=== PATIENT | female | born 1940 | race Caucasian/White ===

== ENCOUNTER → 2017-05-24 | Outpatient (CLI) | payer MEDICARE, OTHER ==
[~2017-05-24] MED LIST: ADVAIR 500/501 EA INH; ASPIR 8181 MG PO; BYDUREON2 MG SC; CINNAMON500 MG PO; DILTIAZEM 24HR180 M1 PO; GABAPENTIN400 MG PO; HYDROCHLOROTHIA25 MG PO; IPRATROPIU0.2 MG/1 M NEB; LANTUS 3ML100 UNITS/ SC; LEVOTHYROXINE50 MCG PO; LORATADINE10 MG PO; LOSARTAN POTAS100 MG PO; MAGNESIUM OXID400 MG PO; METFORMIN HCL500 MG PO; OMEGA 3 1,0001 EACH PO; PANTOPRAZOLE SO40 MG PO; PRAMIPEXOLE D0.25 MG PO; PROAIR HFA INH8.5 GM INH; SPIRIVA18 MCG INH
--- NOTE | 2017-05-25 08:07 | Diagnostic Imaging Report ---
TECHNIQUE: Magnetic resonance imaging of the RIGHT foot was performed WITHOUT injected contrast. HISTORY: Right foot pain, evaluate for osteomyelitis. COMPARISON: None available. DISCUSSION: Soft tissue ulceration with sinus tract plantar to the first MTP joint extending to the bone. Dorsal subluxation of the proximal phalanx from the first metatarsal. Septic arthritis of the first metatarsophalangeal joint with osteomyelitis involving the first metatarsal and proximal phalanx. Surrounding soft tissue phlegmon/abscess. Diffuse soft tissue edema predominantly involving the dorsal soft tissues. Remote posttraumatic/infectious change of the fifth metatarsal head. IMPRESSION: Septic arthritis of the first metatarsophalangeal joint with adjacent osteomyelitis and surrounding phlegmon/abscess. Signed by: Dr. Austin Nicholas M.D. on 05/25/2017 8:04 AM
== END ==
LOC: MRI 14:07
PROVIDERS: ATTEND Family Medicine
DX: M79.671 Pain in right foot (principal); M86.171 Other acute osteomyelitis, right ankle and foot

== ENCOUNTER → 2017-06-04 | Day surgery (SDC) | payer MEDICARE, OTHER ==
[2017-06-02 15:00] LABS: BASOPHILS # (AUTO) 0.1 (0.0-0.1); BASOPHILS % 0.6 % (0.0-1.0); EOSINOPHILS # (AUTO) 0.1 (0.0-0.4); EOSINOPHILS % 0.5 % (0.0-6.0); HEMATOCRIT 42.4 % (34.2-44.1); LYMPHOCYTES # (AUTO) 3.5 (1.0-3.2); LYMPHOCYTES % 27.3 % (18.0-39.1); MEAN CORPUSCULAR HEMOGLOBIN 28.3 pg (28-32); MEAN CORPUSCULAR VOLUME 85.7 fL (81-99); MONOCYTES # (AUTO) 1.1 (0.2-0.8); MONOCYTES % 8.2 % (4.4-11.3); NEUTROPHILS # (AUTO) 8.1 (2.1-6.9); NEUTROPHILS % 62.7 % (38.7-80.0); PLATELET COUNT 378 x10e3/uL (140-360); RED BLOOD COUNT 4.95 x10e6/uL (3.6-5.1); RED CELL DISTRIBUTION WIDTH 14.5 % (11.7-14.4)
[2017-06-02 15:16] LABS: ANION GAP 18.5 mmol/L (8-16); CALCIUM 10.3 mg/dL (8.4-10.2); CREATININE, SERUM 0.99 mg/dL (0.57-1.11); POTASSIUM 4.5 mmol/L (3.5-5.1)
--- NOTE | 2017-06-02 16:01 | Diagnostic Imaging Report ---
PROCEDURE: X-RAY CHEST, TWO VIEWS COMPARISON: Chest x-ray 12/04/16. INDICATIONS: PREOP SURGERY RIGHT FOOT WEDNESDAY FINDINGS: LUNGS: Well-inflated. No mass or infiltrate. Vascular markings are normal. PLEURA: No effusions or pneumothorax. HEART \T\ MEDIASTINUM: The heart is within normal size-limits. Calcifications of the aortic arch are stable. BONES \T\ SOFT TISSUES: No focal osseous lesions. Soft tissues are unremarkable. CONCLUSION: No acute cardiopulmonary process. Dictated by: Aidan River M.D. on 06/02/2017 at 16:01 Electronically approved by: Aidan River M.D. on 06/02/2017 at 16:01
[~2017-06-04] MED LIST changes: +BACITRACIN 50,000 UNIT VIAL ONE; +BUPIVACAINE HCL 0.5% 10ML MPF VIAL INJ ONE; +DEXAMETHASONE SOD PHOS INJ 4 MG/ML VIAL ONE; +FENTANYL CITRATE/PF 100MCG/2 ML INJ ONE; +LIDOCAINE HCL 2% LOCAL INJ 5 ML SDV VIAL INJ ONE; +NEOSTIGMINE 1 MG/ML 10ML VIAL ONE; +PROPOFOL IV EMULSION 10 MG/ML 20 ML VIAL ONE; +SEVOFLURANE INHAL SOLN 250 ML PEN BTL ONE; +VANCOMYCIN 1GM/NS 250 ML 250 ML ONE
--- OUTSIDE RECORDS SUMMARY | 2017-06-04 05:27 | XMS REPORT ---
[facility] Address Unknown Phone Unavailable Care Team Providers Care Leather Seasoner Name Role Phone Effie LEO Unavailable Unavailable CODY LAWSON Unavailable Unavailable Problems This patient has no known problems. Allergies, Adverse Reactions, Alerts This patient has no known allergies or adverse reactions. Medications This patient has no known medications. Results Test Description Test Time Test Comments Text Results Atomic Results Result Comments CHEST 2 VIEWS [place] [address] Patient Name: ASCENCION RUIZ MR #: [id number] : 1940 Age/Sex: 77/F Req #: [id number] [facility] Physician: Ordered by: Effie LEO DPM Report #: [id number] Location: OR Room/Bed: Procedure: [id number] DX/CHEST 2 VIEWS Exam Date: 06/02/17 Exam Time : 1530 REPORT STATUS: Signed PROCEDURE: X-RAY CHEST, TWO VIEWS COMPARISON: Chest x-ray 12/04/16. INDICATIONS: PREOP SURGERY RIGHT FOOT WEDNESDAY FINDINGS: LUNGS: Well-inflated. No mass or infiltrate. Vascular markings are normal. PLEURA: No effusions or pneumothorax. HEART T MEDIASTINUM: The heart is within normal size-limits. Calcifications of the aortic arch are stable. BONES T SOFT TISSUES : No focal osseous lesions. Soft tissues are unremarkable. CONCLUSION : No acute cardiopulmonary process. Dictated by: Radha River M.D. on 06/02/2017 at 16:01 Electronically approved by: Rahda River M.D. on 06/02/2017 at 16:01 Dictated By: RADHA RIVER MD 160 Transcribed By: NITHYA on 06/02/17 1601 COPY TO: Effie LEO DPM MRI FOOT RIGHT WO [place] [address] Patient Name: ASCENCION RUIZ MR #: [id number] : 1940 Age/Sex: 77/F Req # : [id number] Adm Physician: Ordered by: CODY LAWSON MD Report #: [id number] Location: MRI Room/Bed: Procedure: [id number] MRI/MRI FOOT RIGHT WO Exam Date: Exam Time: REPORT STATUS: Signed TECHNIQUE: Magnetic resonance imaging of the RIGHT foot was performed WITHOUT injected contrast. HISTORY: Right foot pain, evaluate for osteomyelitis. COMPARISON: None available. DISCUSSION : Soft tissue ulceration with sinus tract plantar to the first MTP joint extending to the bone. Dorsal subluxation of the proximal phalanx from the first metatarsal. Septic arthritis of the first metatarsophalangeal joint with osteomyelitis involving the first metatarsal and proximal phalanx. Surrounding soft tissue phlegmon/abscess. Diffuse soft tissue edema predominantly involving the dorsal soft tissues. Remote posttraumatic/ infectious change of the fifth metatarsal head. IMPRESSION: Septic arthritis of the first metatarsophalangeal joint with adjacent osteomyelitis and surrounding phlegmon/abscess. Signed by: Dr. Ajay Chatman M.D. on 8:04 AM Dictated By: AJAY CHATMAN MD 3 Transcribed By: ANSON on 05/25/17803 COPY TO: CODY LAWSON MD CHEST 2 VIEWS [place] [address] Patient Name: ASCENCION RUIZ MR #: [id number] : 1940 Age/Sex: 76/F Req # : [id number] Adm Physician: Ordered by: Effie LEO DPM Report #: [id number] Location: OR Room/Bed: Procedure: [id number] DX/CHEST 2 VIEWS Exam Date: 12/24/16 Exam Time: 1700 REPORT STATUS: Signed PROCEDURE: Frontal and lateral views of the chest. COMPARISON: None. INDICATIONS: PREOPERATIVE FOR FOOT SURGERY FINDINGS: Lines/tubes: None. Lungs: The lungs are well inflated and clear. There is no evidence of pneumonia or pulmonary edema. Pleura: There is no pleural effusion or pneumothorax. Heart and mediastinum: The heart and the mediastinum are normal. Bones: No acute bony abnormality. IMPRESSION: 1. No acute cardiopulmonary abnormalities. Stuart Ortiz M.D. Dictated by: Stuart Ortiz M.D. on 12/24/2016 at 17:34 Electronically approved by: Stuart Ortiz M.D. on 12/24/2016 at 17:34 Dictated By: STUART ORTIZ MD 33 Transcribed By: NITHYA on 12/24/161733 COPY TO: Efife LEO DPM
--- NOTE | 2017-06-07 14:21 | Operative Report ---
DATE OF PROCEDURE: June 04, 2017 PREOPERATIVE DIAGNOSIS: Right first ray osteomyelitis. POSTOPERATIVE DIAGNOSIS: Right first ray osteomyelitis. PLANNED PROCEDURE: Partial first ray amputation, right foot. SURGEON: Kristen Rene DPM SUPERVISOR HANGING AND TRIMMING: Nadine Antonio DPM ANESTHESIA: General with a postoperative block consisting of 10 mL of 0.5% Marcaine plain. HEMOSTASIS: Esmarch tourniquet applied for approximately 30 minutes. MATERIALS: 3-0 nylon. ESTIMATED BLOOD LOSS: 10 mL. PATHOLOGY: Bone sent for gross specimen. DETAILS OF PROCEDURE: Patient was seen in the preoperative waiting room where the correct procedure and site was identified. The patient was brought to the operating room, placed on the operating table in supine position. General anesthesia was initiated at this time. The right foot, ankle, and leg were scrubbed, prepped, and draped in the usual aseptic manner. An Esmarch tourniquet was applied to the right ankle for approximately 30 minutes. Attention was directed to the dorsal aspect of the patient's right foot where a dorsally contracted first metatarsophalangeal joint was noted with a deep probing wound to the plantar aspect of the patient's right foot along the first metatarsal. Utilizing a medial incision along the medial aspect of the first metatarsophalangeal joint with 2 converging semi-elliptical incisions at the level of the joint, the case was started. Incision was carried down to the level of bone. Utilizing a towel clamp, the distal aspect of the right hallux was grasped and the toe was disarticulated at the metatarsophalangeal joint and passed off to the back table. The wound was then flushed with copious amounts of sterile saline mixed with bacitracin with Pulsavac. Utilizing a sagittal saw, the head of the first metatarsal was resected and passed off to the back table. All edges were smoothed with a rongeur. Next, the wound was debrided of all necrotic and devitalized tissue and all dog-ears were removed for proper closure. Utilizing the plantar aspect of the plantar medial flap, it was rotated dorsally to allow for full closure of the wound. The wound was then reapproximated utilizing simple interrupted sutures with 3-0 nylon. The incision site was dressed with Adaptic, 4 x 4's, Elliot, Elpidio wrap, and a postop shoe. The patient tolerated the procedure and anesthesia well. Patient was transferred to the postoperative recovery unit with vital signs stable and vascular status intact. The patient was monitored there for a short period of time before being sent home with the following written and oral instructions: 1. Keep the dressing clean, dry, and intact. 2. The patient is to remain nonweightbearing in a postop shoe to avoid excessive ambulation. 3. The patient was given the office number and instructed to contact us if any problems should arise. Dictated By: Nadine Antonio DPM Job#: [id number] VAS
== END | disposition home or self-care (01) ==
LOC: OR 05:25
PROVIDERS: ATTEND Podiatrist Foot & Ankle Surgery
DX: M86.171 Other acute osteomyelitis, right ankle and foot (principal); L97.514 Non-pressure chronic ulcer of other part of right foot with necrosis of bone; M24.574 Contracture, right foot; J44.9 Chronic obstructive pulmonary disease, unspecified; E11.9 Type 2 diabetes mellitus without complications; I49.9 Cardiac arrhythmia, unspecified; I10 Essential (primary) hypertension; F17.200 Nicotine dependence, unspecified, uncomplicated; Z01.810 Encounter for preprocedural cardiovascular examination; Z01.812 Encounter for preprocedural laboratory examination; Z01.818 Encounter for other preprocedural examination
CPT/HCPCS: 28820; 36415 ×2; 71046; 80048; 82948; 85025; 88305; 88311; 93005; J1100; J2001; J3370; 88302; J2710